=== PATIENT | female | born 1935 | race Caucasian/White ===

== ENCOUNTER 2021-08-13 15:35 | Inpatient (IN) | payer MEDICARE, BC ==
[2021-08-13 15:57] LABS: Bilirubin Neg (Negative); Blood, Urine 50 (Negative); Clarity Slightly Cloudy (Clear); Glucose, Urine (Dipstick) Normal (Negative); Ketone, Urine 15 mg/dL (Negative); Leukocyte 100 (Negative); Nitrite Positive (Negative); Protein, Urine (Dipstick) 30 mg/dl (Neg-Trace); Urobilinogen Normal mg/dL (Less than 2)
[2021-08-13] MEDS ORDERED: Acetaminophen 500 MG TAB ONE (16:01)
[2021-08-13 16:13] LABS: PTT 25.6 sec (22.0-33.0); Prothrombin Time 11.3 sec (9.5-12.1)
[2021-08-13 16:15] LABS: Bacteria/HPF 4+ HPF (None Seen)
[2021-08-13 16:16] LABS: Squamous Epithelial 0-3 HPF (0-3)
[2021-08-13 16:18] LABS: ALT (SGPT) 28 U/L (8-55); AST (SGOT) 24 U/L (5-34); Albumin 3.6 g/dL (3.4-4.8); Alkaline Phosphatase 95 U/L (40-110); Anion Gap 19 mmol/L (10-20); BUN (Urea Nitrogen) 32 mg/dL (9.8-20.1); Bilirubin, Total 0.7 mg/dL (0.2-1.2); Calc. Creatinine Clearance 0 mL/min (70-130); Calcium 9.4 mg/dL (7.8-10.44); Carbon Dioxide 22 mmol/L (23-31); Chloride 101 mmol/L (98-107); Globulin 4.2 g/dL (2.4-3.5); Glucose 138 mg/dL (83-110); Protein, Total 7.8 g/dL (5.8-8.1); Sodium 137 mmol/L (136-145)
[2021-08-13 16:18] LABS: WBC/HPF 21-50 HPF (0-3)
[2021-08-13 16:24] LABS: #Monocytes 2.3 10x3/uL (0.0-1.1); #Neutrophils 11.2 10x3/uL (1.5-8.4); %Basophils 0.2 % (0.0-2.0); %Lymphocytes 15.6 % (18.0-47.0); %Neutrophils 69.5 % (40.0-75.0); Hemoglobin 13.5 g/dL (12.0-15.5); Mean Corpuscular HGB CONC 33.3 g/dL (32.0-36.0); Mean Corpuscular Hemoglobin 29.4 pg (27.0-33.0); Mean Corpuscular Volume 88.5 fl (81.6-98.3); Mean Platelet Volume 10.6 fl (7.4-10.4); Platelet Count 365 10x3/uL (150-450); RBC Distribution Width 14.4 % (11.5-14.5); Red Blood Cell (RBC) Count 4.59 10x6/uL (3.90-5.03); White Blood Cell (WBC) Count 16.1 10x3/uL (3.5-10.5)
[2021-08-13 16:43] LABS: SARS-CoV-2 NAA Rapid Test Not Detected (NotDetected)
[2021-08-13] MEDS ORDERED: Acetaminophen 325 MG TAB PO PRN (16:44)
[2021-08-13] MEDS ORDERED: Guaifenesin DM 100-10/5 ML UDCUP PO PRN (16:44)
[2021-08-13] MEDS ORDERED: Senokot S 8.6-50 MG TAB PO PRN (16:44)
[2021-08-13 19:50] VITALS: BMI 34.6
[2021-08-13] MEDS: Sodium Chloride 0.9% 1,000 ML IV SCH (21:26)
[2021-08-13] MEDS: Famotidine/PF 20 mg/2ml Vial SLOW IVP SCH (21:26)
[2021-08-14 04:13] LABS: Anion Gap 17 mmol/L (10-20); BUN (Urea Nitrogen) 22 mg/dL (9.8-20.1); Calc. Creatinine Clearance 63 mL/min (70-130); Calcium 8.9 mg/dL (7.8-10.44); Carbon Dioxide 19 mmol/L (23-31); Chloride 104 mmol/L (98-107); Glucose 161 mg/dL (83-110); Potassium 4.5 mmol/L (3.5-5.1); Sodium 135 mmol/L (136-145)
[2021-08-14 04:20] LABS: Hemoglobin 11.4 g/dL (12.0-15.5); Mean Corpuscular Hemoglobin 29.9 pg (27.0-33.0); Mean Corpuscular Volume 90.6 fl (81.6-98.3); Mean Platelet Volume 10.4 fl (7.4-10.4); Platelet Count 323 10x3/uL (150-450); RBC Distribution Width 14.3 % (11.5-14.5); Red Blood Cell (RBC) Count 3.81 10x6/uL (3.90-5.03); White Blood Cell (WBC) Count 19.3 10x3/uL (3.5-10.5)
[2021-08-14 04:21] LABS: MDiff Complete? YES; Manual Diff?? YES
[2021-08-14 05:24] LABS: Band 7 % (5-11); Lymphocytes 6 % (21-51); Monocytes 12 % (0-10); Neutrophil 68 % (42-75); Reactive Lymphocytes 5 % (0-10)
[2021-08-14 05:26] LABS: Platelet Morphology Comment Appears Adequate
[2021-08-14] MEDS ORDERED: Dextrose 50% Abboject 50 ML SYRINGE SLOW IVP PRN (08:56)
[2021-08-14] MEDS ORDERED: Dextrose 5% in Water 1,000 ML IV PRN (08:56)
[2021-08-14] MEDS: Aspirin 81 mg Enteric Coated Tablet PO SCH (10:38)
[2021-08-14] MEDS: Enoxaparin Sodium 30 MG/0.3 ML SYRINGE SC SCH (10:39)
[2021-08-14] MEDS: HumaLOG 300 UNITS/3 ML VIAL SC PRN (12:52)
[2021-08-14] MEDS ORDERED: Acetaminophen 500 MG TAB PO PRN (14:31)
[2021-08-14] MEDS ORDERED: Artificial Tear Sol 15 ML BOT EA EYE PRN (14:31)
[2021-08-14] MEDS ORDERED: Ondansetron ODT 4 MG TAB PO PRN (14:31)
[2021-08-14] MEDS ORDERED: Acetaminophen 650 MG Suppository PR PRN (14:31)
[2021-08-14] MEDS ORDERED: Loratadine 10 MG TAB PO PRN (14:31)
[2021-08-14] MEDS ORDERED: Sodium Chloride 0.65% Nasal 44 ML BOT EA NARE PRN (14:31)
[2021-08-14] MEDS ORDERED: Moisturizing Cream (Eucerin) 113 GM JAR TOP PRN (14:31)
[2021-08-14] MEDS ORDERED: Calcium Carbonate 500 MG ChewTAB PO PRN (14:31)
[2021-08-14] MEDS ORDERED: hydrALAZINE 20 MG/ML VIAL SLOW IVP PRN (14:31)
[2021-08-14] MEDS ORDERED: Labetalol HCl 100 MG/20 ML VIAL SLOW IVP PRN (14:31)
[2021-08-14] MEDS ORDERED: GUAIFENESIN SF SOLN 200 MG/10 ML UDCUP PO PRN (14:31)
[2021-08-14] MEDS ORDERED: Melatonin 3 MG TAB PO PRN (14:37)
[2021-08-14] MEDS: Atorvastatin Calcium 40 MG TAB PO SCH (21:16)
[2021-08-14] MEDS: Famotidine/PF 20 mg/2ml Vial SLOW IVP SCH (21:16)
[2021-08-15] MEDS: Sodium Chloride 0.9% 1,000 ML IV SCH
[2021-08-15] MEDS: Lactated Ringer's 1,000 ML IV SCH ×2 (05:19→18:34)
[2021-08-15] MEDS ORDERED: Venlafaxine HCl XR 150 MG CAP PO SCH (09:00)
[2021-08-15 09:29] LABS: #Monocytes 2.1 10x3/uL (0.0-1.1); %Basophils 0.2 % (0.0-2.0); %Eosinophils 0.2 % (0.0-6.0); %Lymphocytes 20.2 % (18.0-47.0); %Monocytes 14.7 % (0.0-10.0); %Neutrophils 64.1 % (40.0-75.0); Hemoglobin 11.2 g/dL (12.0-15.5); Mean Corpuscular HGB CONC 33.3 g/dL (32.0-36.0); Mean Corpuscular Hemoglobin 29.9 pg (27.0-33.0); Mean Corpuscular Volume 89.8 fl (81.6-98.3); Mean Platelet Volume 10.3 fl (7.4-10.4); Platelet Count 315 10x3/uL (150-450); RBC Distribution Width 14.3 % (11.5-14.5); Red Blood Cell (RBC) Count 3.74 10x6/uL (3.90-5.03)
[2021-08-15 09:42] LABS: Anion Gap 16 mmol/L (10-20); BUN (Urea Nitrogen) 14 mg/dL (9.8-20.1); Calc. Creatinine Clearance 65 mL/min (70-130); Calcium 8.4 mg/dL (7.8-10.44); Carbon Dioxide 20 mmol/L (23-31); Chloride 103 mmol/L (98-107); Glucose 136 mg/dL (83-110); Magnesium 1.2 mg/dL (1.6-2.6); Phosphorus 2.3 mg/dL (2.3-4.7); Potassium 4.2 mmol/L (3.5-5.1); Sodium 135 mmol/L (136-145)
[2021-08-15] MEDS: Venlafaxine HCl XR 75 MG CAP PO SCH (10:38)
[2021-08-15] MEDS: Cholecalciferol 1,000 UNITS (25 MCG) TAB PO SCH (10:38)
[2021-08-15] MEDS: Multivit, Therapeutic 1 TAB PO SCH (10:39)
[2021-08-15] MEDS: Carvedilol 6.25 MG TAB PO SCH ×2 (10:39→21:01)
[2021-08-15] MEDS: Trospium 20 MG TAB PO SCH ×2 (10:39→21:01)
[2021-08-15] MEDS: Enoxaparin Sodium 30 MG/0.3 ML SYRINGE SC SCH (10:40)
[2021-08-15] MEDS: Primidone 50 MG TAB PO SCH (10:40)
[2021-08-15] MEDS: Aspirin 81 mg Enteric Coated Tablet PO SCH (10:40)
[2021-08-15] MEDS: Allopurinol 100 MG TAB PO SCH (10:40)
[2021-08-15] MEDS ORDERED: Electrolyte Replacement Protocol 1 EACH FS PRN (15:45)
[2021-08-15] MEDS ORDERED: Magnesium 2 GM/50 ML(in water) 2 GM in Premix Bag 1 BAG IVPB SCH ×3 (16:30→21:15)
[2021-08-15] MEDS ORDERED: Lisinopril 10 MG TAB PO SCH (16:30)
[2021-08-15] MEDS: Atorvastatin Calcium 40 MG TAB PO SCH (21:02)
[2021-08-15] MEDS: HumaLOG 300 UNITS/3 ML VIAL SC PRN (22:22)
[2021-08-16 04:14] LABS: #Eosinphils 0.1 10x3/uL (0.0-0.5); #Monocytes 1.3 10x3/uL (0.0-1.1); #Neutrophils 6.3 10x3/uL (1.5-8.4); %Basophils 0.2 % (0.0-2.0); %Lymphocytes 22.7 % (18.0-47.0); %Monocytes 12.7 % (0.0-10.0); %Neutrophils 62.8 % (40.0-75.0); Hemoglobin 10.7 g/dL (12.0-15.5); Mean Corpuscular HGB CONC 33.1 g/dL (32.0-36.0); Mean Corpuscular Hemoglobin 29.7 pg (27.0-33.0); Mean Corpuscular Volume 89.7 fl (81.6-98.3); Mean Platelet Volume 10.4 fl (7.4-10.4); Platelet Count 307 10x3/uL (150-450); RBC Distribution Width 14.1 % (11.5-14.5); White Blood Cell (WBC) Count 10.1 10x3/uL (3.5-10.5)
[2021-08-16 04:26] LABS: Anion Gap 15 mmol/L (10-20); BUN (Urea Nitrogen) 16 mg/dL (9.8-20.1); Calc. Creatinine Clearance 64 mL/min (70-130); Calcium 8.3 mg/dL (7.8-10.44); Carbon Dioxide 21 mmol/L (23-31); Chloride 103 mmol/L (98-107); Glucose 157 mg/dL (83-110); Magnesium 2.2 mg/dL (1.6-2.6); Potassium 3.9 mmol/L (3.5-5.1); Sodium 135 mmol/L (136-145)
[2021-08-16] MEDS ORDERED: Lisinopril 10 MG TAB PO SCH (09:00)
[2021-08-16] MEDS ORDERED: VITAMIN E PO SCH (09:00)
[2021-08-16] MEDS ORDERED: [UNRECOGNIZED DRUG - OTHER] PO SCH (09:00)
[2021-08-16] MEDS ORDERED: ASCORBIC ACID PO SCH (09:00)
[2021-08-16] MEDS ORDERED: BIOTIN PO SCH (09:00)
[2021-08-16 09:24] LABS: #Eosinphils 0.1 10x3/uL (0.0-0.5); #Monocytes 1.3 10x3/uL (0.0-1.1); #Neutrophils 5.6 10x3/uL (1.5-8.4); %Basophils 0.2 % (0.0-2.0); %Eosinophils 1.3 % (0.0-6.0); %Lymphocytes 26.3 % (18.0-47.0); %Monocytes 13.6 % (0.0-10.0); Hemoglobin 10.7 g/dL (12.0-15.5); Mean Corpuscular HGB CONC 32.9 g/dL (32.0-36.0); Mean Corpuscular Hemoglobin 29.6 pg (27.0-33.0); Mean Corpuscular Volume 89.8 fl (81.6-98.3); Mean Platelet Volume 9.7 fl (7.4-10.4); Platelet Count 304 10x3/uL (150-450); RBC Distribution Width 14.4 % (11.5-14.5); Red Blood Cell (RBC) Count 3.62 10x6/uL (3.90-5.03); White Blood Cell (WBC) Count 9.7 10x3/uL (3.5-10.5)
[2021-08-16] MEDS ORDERED: traZODone HCl 50 MG TAB PO PRN (09:26)
[2021-08-16 09:33] LABS: Anion Gap 12 mmol/L (10-20); BUN (Urea Nitrogen) 15 mg/dL (9.8-20.1); Calc. Creatinine Clearance 65 mL/min (70-130); Calcium 8.7 mg/dL (7.8-10.44); Carbon Dioxide 24 mmol/L (23-31); Chloride 103 mmol/L (98-107); Glucose 147 mg/dL (83-110); Potassium 3.7 mmol/L (3.5-5.1); Sodium 135 mmol/L (136-145)
[2021-08-16] MEDS: Enoxaparin Sodium 30 MG/0.3 ML SYRINGE SC SCH (10:19)
[2021-08-16] MEDS: Trospium 20 MG TAB PO SCH (10:19)
[2021-08-16] MEDS: Cholecalciferol 1,000 UNITS (25 MCG) TAB PO SCH (10:19)
[2021-08-16] MEDS: Venlafaxine HCl XR 75 MG CAP PO SCH (10:19)
[2021-08-16] MEDS: Multivit, Therapeutic 1 TAB PO SCH (10:19)
[2021-08-16] MEDS: Aspirin 81 mg Enteric Coated Tablet PO SCH (10:20)
[2021-08-16] MEDS: Allopurinol 100 MG TAB PO SCH (10:20)
[2021-08-16] MEDS: Carvedilol 6.25 MG TAB PO SCH (10:20)
[2021-08-16] MEDS: Primidone 50 MG TAB PO SCH (10:20)
[2021-08-16 12:41] VITALS: BP 175/79; TEMP 98
[2021-08-16] MEDS: HumaLOG 300 UNITS/3 ML VIAL SC PRN (12:51)
== END 2021-08-16 17:25 | disposition swing bed (61) | DRG 872 ==
LOC: CSHERS 15:35 → CSHTELE 19:20
PROVIDERS: ADMIT Hospitalist; ATTEND Family Medicine
DX: A41.51 Sepsis due to Escherichia coli [E. coli] (principal); N39.0 Urinary tract infection, site not specified; N17.9 Acute kidney failure, unspecified; I50.30 Unspecified diastolic (congestive) heart failure; E11.9 Type 2 diabetes mellitus without complications; I11.0 Hypertensive heart disease with heart failure; K76.9 Liver disease, unspecified; I25.10 Atherosclerotic heart disease of native coronary artery without angina pectoris; E86.0 Dehydration; J10.1 Influenza due to other identified influenza virus with other respiratory manifestations; Z20.822 Contact with and (suspected) exposure to COVID-19; E66.01 Morbid (severe) obesity due to excess calories; R32 Unspecified urinary incontinence; R65.20 Severe sepsis without septic shock; A41.59 Other Gram-negative sepsis; R15.9 Full incontinence of feces; Z60.2 Problems related to living alone; Z87.11 Personal history of peptic ulcer disease; Z90.49 Acquired absence of other specified parts of digestive tract; Z98.890 Other specified postprocedural states; Z88.6 Allergy status to analgesic agent; Z88.1 Allergy status to other antibiotic agents; Z88.0 Allergy status to penicillin; Z88.8 Allergy status to other drugs, medicaments and biological substances; Z91.09 Other allergy status, other than to drugs and biological substances; Z79.82 Long term (current) use of aspirin; Z79.899 Other long term (current) drug therapy; Z79.4 Long term (current) use of insulin; Z90.710 Acquired absence of both cervix and uterus; Z83.3 Family history of diabetes mellitus; Z68.34 Body mass index [BMI] 34.0-34.9, adult; Z95.5 Presence of coronary angioplasty implant and graft
CPT/HCPCS: 36415; 36416; 51701; 71045; 74176; 80048; 80053; 81003; 81015; 83605; 83735; 83880; 84100; 84145; 84484; 85025; 85610; 85730; 87040; 87070; 87077; 87086; 87149; 87186; 87205; 93005; 96374; J0360; J1650; J1815; J1956; J3475; J7050; J7120; S0028